=== PATIENT | male | born 2000 | race Caucasian/White ===

== ENCOUNTER 2022-06-17 15:50 | Emergency (ER) | payer OTHER, SELFPAY ==
[2022-06-17 15:59] VITALS: BP 129/75; PULSE 63; RESP 19; TEMP 36.6; O2SAT 99; BMI 27.6
[2022-06-17 18:07] VITALS: PULSE 74; O2SAT 100
[2022-06-17 18:08] VITALS: BP 119/58; PULSE 65; O2SAT 100
[2022-06-17 18:30] VITALS: BP 110/70; PULSE 53; O2SAT 100
--- NOTE | 2022-06-17 18:33 | PC.NURSE ---
pt states he hurt his back while lift 15lb on saturday. he has significant history of hurting his back with sports and working out but saturday it suddenly go much worse. he has been medicating with acetaminophen and ibuprofen as needed and this helps some but the pain is not going away and he is struggling to continue his new job which has some physical demands. pt just wants to make sure he is okay and try to get well soon
--- NOTE | 2022-06-17 18:47 | ED.BACK ---
HPI - Back Pain/Injury General Chief Complaint: Back Pain/Injury Stated Complaint: Back pain since saturday Time Seen by Provider: 06/17/22 18:37 Source: patient Mode of arrival: Ambulatory Limitations: no limitations History of Present Illness HPI Narrative: Patient is a 22-year-old male who is here for evaluation of left upper/mid back discomfort that is been present for the past several days. He has had pain in this area in the past however it has never lasted this long. It did seem to start when he lifted an object in his been consistent. Has tried home medications light Tylenol without any improvement. No fevers. Related Data Previous Rx's Medication Instructions Recorded cyclobenzaprine 10 mg tablet 10 mg PO TID PRN muscle spasm #14 06/17/22 tabs Allergies Allergy/AdvReac Type Severity Reaction Status Date / Time No Known Drug Allergies Allergy Verified 06/17/22 16:03 Review of Systems Constitutional Constitutional: Reports system reviewed and no additional complaints, except as documented Musculoskeletal Musculoskeletal: Reports system reviewed and no additional complaints, except as documented Integumentary/Breasts Skin/Breast: Reports system reviewed and no additional complaints, except as documented Neurologic Neurologic: Reports system reviewed and no additional complaints, except as documented Patient History Social History Smoking Status: Never smoker Smoking Status: Never smoker alcohol intake frequency: 0-2 drinks per day Substance Use Type: does not use Exam Initial Vital Signs Initial Vital Signs: Vital Signs Temperature 97.9 F 06/17/22 15:59 Pulse Rate 63 06/17/22 15:59 Respiratory Rate 19 06/17/22 15:59 Blood Pressure 129/75 06/17/22 15:59 Pulse Oximetry 99 06/17/22 15:59 Oxygen Delivery Method 06/17/22 15:59 HENMT Head: normal to inspection and normocephalic Back/Spine/Pelvis Other: Discomfort along the rhomboids on the left with fullness in this area. Minimal if any discomfort on the right. No tenderness in his lumbar region. Skin General: no rashes or lesions noted Neuro General: patient alert, patient awake and moves all extremities Course Orders Ordered: Discontinued Medications Cyclobenzaprine HCl (Cyclobenzaprine 10 Mg Prepack) 1 bottle MISC SEEINSTR ONE Stop: 06/17/22 18:48 Last Admin: 06/17/22 18:56 Dose: 1 bottle Documented By: ALLAN Vital Signs Vital signs: Vital Signs - 8 hr 06/17/22 15:59 06/17/22 18:07 06/17/22 18:08 Temperature 97.9 F Pulse Rate 63 74 65 Respiratory Rate 19 Blood Pressure 129/75 Pulse Oximetry 99 100 100 Oxygen Delivery Method Room Air 06/17/22 18:08 06/17/22 18:30 06/17/22 18:30 Temperature Pulse Rate 53 L Respiratory Rate Blood Pressure 119/58 L 110/70 Pulse Oximetry 100 Oxygen Delivery Method MDM - Back Pain/Injury MDM Narrative Medical decision making narrative: Patient does have fullness over the rhomboids on the left. I do suspect muscular spasm/strain. It is reproducible with palpation. Will treat with conservative measures. Patient was given return precautions. Low suspicion for fracture. No indication for radiologic studies. Discussed return precautions and follow-up instructions. He expressed understanding and agreement. Discharge Plan Departure Patient Disposition: Home Clinical Impression: Thoracic back pain Instructions: DI for Muscle Strain, How To Perform RICE (Rest, Ice, Compress, Elevate) Activity Restrictions/Additional Instructions: I do recommend that you continue with a conservative measures to include Tylenol and ibuprofen and also heat and ice and massage like we discussed. Use the muscle relaxers as needed as well return to the emergency department for new symptoms. Prescriptions: New cyclobenzaprine 10 mg tablet 10 mg PO TID PRN (Reason: muscle spasm) Qty: 14 0RF Stand Alone Forms: Patient Portal/API
[2022-06-17] MEDS: CYCLOBENZAPRINE 10 MG PREPACK 1 BOTTLE MISC (18:56)
== END 2022-06-17 19:01 | disposition home or self-care (01) ==
PROVIDERS: Emergency Provider Emergency Medicine; Family Provider Family Medicine
DX: M54.6 Pain in thoracic spine (principal); X50.9XXA Other and unspecified overexertion or strenuous movements or postures, initial encounter
CPT/HCPCS: 99281